=== PATIENT | male | born 1940 | race African-American/Black ===

== ENCOUNTER 2017-08-29 13:45 | Outpatient (CLI) | payer MEDICARE ==
--- NOTE | 2017-08-29 15:33 | RAD ---
PA AND LATERAL CHEST RADIOGRAPH: Date: 08-29-17 History: Dyspnea. Comparison: 06-24-14 FINDINGS: Cardiac silhouette and pulmonary vasculature are within normal limits. Calcified pleural based plaque s are again seen bilaterally. There is a calcified granuloma again seen at the left lung base. The briseyda ngs are otherwise clear. Vascular calcifications seen in the thoracic aorta. No other interval change . IMPRESSION: 1. No acute cardiopulmonary process. 2. Calcified bilateral pleural based plaques which can be seen with prior asbestos exposure. POS: [facility]
== END 2017-08-29 13:46 | disposition home or self-care (01) ==
LOC: RAD 13:45
PROVIDERS: ATTEND Internal Medicine Pulmonary Disease
DX: R06.00 Dyspnea, unspecified (principal); J92.9 Pleural plaque without asbestos
CPT/HCPCS: 71046

== ENCOUNTER 2017-09-20 13:23 | Outpatient (CLI) | payer MEDICARE, BC | END 2017-09-20 13:24 | disposition home or self-care (01) | LOC: CP 13:23 | PROVIDERS: ATTEND Internal Medicine Pulmonary Disease | DX: R06.00 Dyspnea, unspecified (principal) | CPT/HCPCS: 94010; 94727; 94729 ==

== ENCOUNTER → 2018-01-04 | Day surgery (SDC) | payer MEDICARE, BC ==
[2018-01-03 12:15] VITALS: BMI 25.1
== END ==
LOC: CCL 05:50
PROVIDERS: ATTEND Internal Medicine Cardiovascular Disease
DX: R06.02 Shortness of breath (principal); Z79.82 Long term (current) use of aspirin; Z79.899 Other long term (current) drug therapy; Z53.9 Procedure and treatment not carried out, unspecified reason

== ENCOUNTER 2018-01-25 09:44 | Observation (INO) | payer MEDICARE, BC ==
[2018-01-25 15:23] VITALS: BMI 24.5
[2018-01-25 15:45] LABS: #Basophils 0.1 thou/uL (0.0-0.2); #Lymphocytes 1.3 thou/uL (1.20-3.40); #Monocytes 0.4 thou/uL (0.11-0.59); #Neutrophils 1.7 thou/uL (1.40-6.50); %Basophils 1.5 % (0.0-1.0); %Eosinophils 0.8 % (0.0-10.0); %Lymphocytes 37.3 % (21.0-51.0); %Monocytes 12.2 % (0.0-10.0); %Neutrophils 48.2 % (42.0-75.0); Hemoglobin 9.6 g/dL (14.0-18.0); Mean Corpuscular HGB CONC 31.8 g/dL (32.0-36.0); Mean Corpuscular Hemoglobin 27.8 pg (27.0-31.0); Mean Corpuscular Volume 87.5 fL (78.0-98.0); Mean Platelet Volume 7.7 fL (7.4-10.4); Platelet Count 164 thou/uL (130-400); RBC Distribution Width 12.8 % (11.5-14.5); Red Blood Cell (RBC) Count 3.44 mill/uL (4.70-6.10); White Blood Cell (WBC) Count 3.5 thou/uL (4.8-10.8)
[2018-01-25 16:06] LABS: ALT (SGPT) 14 U/L (8-55); AST (SGOT) 16 U/L (5-34); Albumin 3.6 g/dL (3.4-4.8); Alkaline Phosphatase 48 U/L (40-150); Anion Gap 10 mmol/L (10-20); BUN (Urea Nitrogen) 28 mg/dL (8.4-25.7); Bilirubin, Total 0.3 mg/dL (0.2-1.2); Calc. Creatinine Clearance 30 mL/min (70-130); Calcium 8.8 mg/dL (7.8-10.44); Carbon Dioxide 27 mmol/L (23-31); Chloride 105 mmol/L (98-107); Estimated GFR-MDRD 32; Globulin 3.9 g/dL (2.4-3.5); Glucose 86 mg/dL (83-110); Potassium 3.8 mmol/L (3.5-5.1); Protein, Total 7.5 g/dL (5.8-8.1); Sodium 138 mmol/L (136-145)
[2018-01-25] MEDS ORDERED: Zolpidem Tartrate 5 MG TAB PO PRN (17:35)
[2018-01-25] MEDS ORDERED: Loperamide HCl 2 MG CAP PO PRN (17:35)
--- NOTE | 2018-01-25 18:07 | HP ---
DATE OF ADMISSION: 01/25/2018. CHIEF COMPLAINT: Shortness of breath. HISTORY OF PRESENT ILLNESS: Mr. Lakhani is a pleasant 77-year-old -[place] gentleman who come s to the hospital for direct admission from the office for planned heart catheterization tomorrow ronald tolentino. He was scheduled to have this procedure done few weeks back, but, however, his creatinine was high, so we decided to bring him in one day before, try to hydrate him and see we could protect his k idneys from kidney injury from the contrast. He has been short of breath for some time with exertion . He has noted a small spot on the lung that was studied by Dr. Sevilla and this was deemed to be not a n issue and his lungs actually worked really well, not a problem with shortness of breath, so he is p lanned to have a heart catheterization despite having had a normal stresses as he has ongoing shortne ss of breath. PAST MEDICAL HISTORY: Hypertension. SOCIAL HISTORY: Cigarette use. ALLERGIES: No known drug allergies. PAST SURGICAL HISTORY: Neck surgery. OUTPATIENT MEDICATIONS: 1. Vitamin D3. 2. Aspirin 81 a day. 3. Quinapril 20 mg with hydrochlorothiazide 25 mg a day. FAMILY HISTORY: Noncontributory. REVIEW OF SYSTEMS: A 12-point review of systems was done and is all negative unless stated in histor y of present illness. PHYSICAL EXAMINATION: VITAL SIGNS: Temperature 98.6, pulse 79, respiration rate 20, satting 98% on room air, blood pressur e 153/82. GENERAL: Awake, alert and oriented x3, in no distress. HEENT: Normocephalic, atraumatic. NECK: Supple. LUNGS: Clear. CARDIOVASCULAR: S1, S2, no S3, S4, no murmurs. ABDOMEN: Soft, positive bowel sounds. EXTREMITIES: No edema. SKIN: Warm and dry. LABORATORY WORK: Reviewed. His creatinine is actually a little bit higher than last time 2.37, hemo globin 9.6 slightly lower, white count of 3.5, hematocrit 30, platelet count of 164. Albumin was 3.6 . ASSESSMENT: 1. Shortness of breath. 2. Chronic kidney disease stage 3, close to stage 4. 3. Anemia. PLAN: 1. Left heart catheterization tomorrow as long as his creatinine is better with IV hydration. If hi s creatinine still the same and continues to climb, then we will hold on this and we will only do thi s if there is a compelling reason like an acute myocardial infarction or elevated troponins, but in t he setting of having anemia, he could be short of breath from his anemia as well. We will hopefully be able to do the heart catheterization tomorrow and decide if this is related to coronary artery dis ease. 2. Otherwise, continue home medications for now. DISPOSITION: Pending results of heart catheterization tomorrow.
[2018-01-25] MEDS: Sodium Chloride 0.9% 1,000 ML IV SCH (18:08)
[2018-01-25 20:44] LABS: Bilirubin Negative (Negative); Blood, Urine Negative (Negative); Clarity CLEAR (Clear); Glucose, Urine (Dipstick) Negative (Negative); Leukocyte Negative (Negative); Nitrite Negative (Negative); Protein, Urine (Dipstick) Trace mg/dL (Neg-Trace); Specific Gravity, Urine 1.015 (1.002-1.036); Urobilinogen 0.2 mg/dL (0.2-1.0)
[2018-01-25 20:46] LABS: Bacteria/HPF None Seen HPF (None Seen); Hyaline Casts/LPF 0-3 HYALINE CAST LPF (0-3 Hyaline); Pathc Cast-AUWi Flag 0.14 (0-2.49); RBC/HPF 0-3 HPF (0-3); Squamous Epithelial None Seen HPF (0-3); WBC/HPF None Seen HPF (0-3)
[2018-01-25] MEDS ORDERED: Prevnar 13-Val Conj/PF 0.5 ML SYRINGE IM ONE (21:00)
[2018-01-25] MEDS ORDERED: cloNIDine 0.1 MG TAB PO PRN (21:31)
[2018-01-26] MEDS: Sodium Chloride 0.9% 1,000 ML IV SCH (05:07)
[2018-01-26 05:32] LABS: ALT (SGPT) 12 U/L (8-55); AST (SGOT) 13 U/L (5-34); Albumin 3.2 g/dL (3.4-4.8); Alkaline Phosphatase 40 U/L (40-150); Anion Gap 10 mmol/L (10-20); BUN (Urea Nitrogen) 27 mg/dL (8.4-25.7); Bilirubin, Total 0.3 mg/dL (0.2-1.2); Calc. Creatinine Clearance 34 mL/min (70-130); Calcium 8.3 mg/dL (7.8-10.44); Carbon Dioxide 25 mmol/L (23-31); Cardiac Risk 3.4 (Less than 4.5); Chloride 106 mmol/L (98-107); Cholesterol 151 mg/dl (< 200 Desired); Estimated GFR-MDRD 37; Globulin 3.4 g/dL (2.4-3.5); Glucose 85 mg/dL (83-110); HDL Cholesterol 44 mg/dL (>60 Neg Risk); LDL Cholesterol, Calculated 88 mg/dL; Protein, Total 6.6 g/dL (5.8-8.1); Sodium 137 mmol/L (136-145); Triglycerides 94 mg/dL (Less than 150)
[2018-01-26 08:40] VITALS: BP 131/67; TEMP 98.1
--- NOTE | 2018-01-26 10:03 | DIS ---
DATE OF ADMISSION: 01/25/2018 DATE OF DISCHARGE: 01/26/2018 SUMMARY: Mr. Lakhani was brought in for prehydration for heart catheterization. His creatinine was 2 .3 and only went down to 2.1. I think the risks outweigh the benefits at this point as his creatinin e is not getting any better. Not only that, but there is only a low hemoglobin, which is new at 9.6. This is down from 10 and has been slowly trickling down the last few months. At this point, I woul d hold off on any invasive procedures and would assume there is some level of coronary artery disease making him short of breath and will add Imdur to his regimen to see if this helps in any way. He wi ll also need to be evaluated by Gastroenterology for consideration of upper and lower endoscopy. I t hink he already had something scheduled and he will follow up on this. DISCHARGE MEDICATIONS: Unchanged except for the addition of Imdur 30 mg a day. FOLLOWUP APPOINTMENTS: In 1 month with myself.
== END 2018-01-26 10:23 | disposition home or self-care (01) ==
LOC: INTOOBSV 14:27 → 2SW 14:27
PROVIDERS: ADMIT Internal Medicine Cardiovascular Disease; ATTEND Internal Medicine Cardiovascular Disease
DX: R06.02 Shortness of breath (principal); I12.9 Hypertensive chronic kidney disease with stage 1 through stage 4 chronic kidney disease, or unspecified chronic kidney disease; N18.3 Chronic kidney disease, stage 3 (moderate); D64.9 Anemia, unspecified; Z79.82 Long term (current) use of aspirin; Z79.899 Other long term (current) drug therapy
CPT/HCPCS: 80053 ×2; 80061; 81001; 84443; 85025; 90670; 96360; 96361 ×2; G0009; G0378; G0379; 36415; 90471

== ENCOUNTER 2019-08-03 12:13 | Outpatient (CLI) | payer MEDICARE, BC ==
--- NOTE | 2019-08-03 14:09 | ULT ---
BILATERAL RENAL ULTRASOUND: INDICATION: Chronic kidney disease. FINDINGS: The right kidney measures 11 cm length. The left kidney measures 9 cm length. Mild increased cortical echogenicity is seen. There is a 5 cm cyst involving the inferior pole of the right kidney. No hydronephrosis. The urinar y bladder is mildly distended and appears unremarkable. IMPRESSION: 1. Right renal cyst. 2. Mild increased cortical echogenicity. POS: [facility]
== END 2019-08-03 12:14 | disposition home or self-care (01) ==
LOC: BICULT 12:13
PROVIDERS: ATTEND Internal Medicine Nephrology
DX: N18.3 Chronic kidney disease, stage 3 (moderate) (principal); N28.1 Cyst of kidney, acquired
CPT/HCPCS: 76770